=== PATIENT | female | born 1985 | race Two or more races ===

== ENCOUNTER 2018-11-15 21:26 | Emergency (ER) | payer MEDICAID ==
[~2018-11-15] VITALS: Ht 165.1 cm; Wt 83.9 kg
[2018-11-15] MEDS ORDERED: Ketorolac 60mg Inj IM ONE (22:15)
[2018-11-15 22:22] VITALS: BP 102/37
--- NOTE | 2018-11-15 22:25 | NUR ---
ED Nurse Note: Patient walked in to ER c/o left leg pain 10/10. Per patient she was cleaning her kitchen and fell. AAOx4, VSS at this time, patient presented with swollen left knee. will continue to monitor.
[2018-11-15] MEDS ORDERED: IBUPROFEN600 MG ORAL (23:53)
--- NOTE | 2018-11-16 00:21 | NUR ---
ED Nurse Note: Pt cleared by health care Provider for discharge. DC instructions/prescription was given and explained to pt and verbalized understanding of teachings. All medical deviecs such as ID band removed. Pt is AAO x4, ambulatory and left with all personal belongings.
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
--- NOTE | 2018-11-19 15:17 | Emergency Room Report ---
History of Present Illness General Chief Complaint: Multiple Trauma/Fall Source: Patient Present Illness HPI Patient is a 33-year-old female presents after increased right knee pain. Patient had a fall just prior to arrival. She reports having sharp pain to the right knee. She reports having struck the right knee directly on the ground. She reports that increased pain and difficulty with walking after the injury. She denies any other locations of significant pain. She denies past medical history. Allergies: Coded Allergies: Oyster (Verified Allergy, Unknown, 11/15/18) Uncoded Allergies: CAT (Allergy, Unknown, 11/15/18) PINE (Allergy, Unknown, 11/15/18) Patient History Past Medical History: see triage record Last Menstrual Period: now Now: No Reviewed Nursing Documentation: PMH: Agreed; PSxH: Agreed Review of Systems All Other Systems: negative except mentioned in HPI Physical Exam Vital Signs Date Time Temp Pulse Resp B/P (MAP) Pulse Ox O2 Delivery O2 Flow Rate FiO2 11/15/18 22:03 98.1 87 20 102/37 (58) 100 Room Air General Appearance: no apparent distress, alert, GCS 15, obese ENT: hearing grossly normal Respiratory: normal inspection, lungs clear, normal breath sounds, no accessory muscle use Cardiovascular #1: normal inspection, regular rate, rhythm Gastrointestinal: normal inspection, soft Musculoskeletal: swelling - right knee swelling, no definite ligamentous instability. Limited exam due to swelling. Neurologic: normal inspection, alert, oriented x3, responsive, charity fundraiser III-XII nml as tested Psychiatric: normal inspection Skin: other - bruising and swelling near right kneecap Medical Decision Making Diagnostic Impression: Primary Impression: Knee contusion ER Course Patient presented for right knee pain after a fall. Differential diagnosis include was not limited to ligamentous injury, knee dislocation, fracture, meniscal tear among others. X-ray imaging of the right knee 3 views interpreted by me showed normal bony alignment without evident fracture. Patient was given pain medications. She is placed in a knee immobilizer. Patient was advised to follow-up with primary care physician for orthopedic referral. She was given prescription for pain medications. Last Vital Signs Date Time Temp Pulse Resp B/P (MAP) Pulse Ox O2 Delivery O2 Flow Rate FiO2 11/16/18 00:19 98.1 20 102/37 100 Room Air 11/15/18 22:22 87 Status: improved Disposition: HOME, SELF-CARE Condition: Stable Scripts Ibuprofen* (MOTRIN*) 600 Mg Tablet 600 MG ORAL Q8H PRN for For Pain, #30 TAB 0 Refills Prov: Joseph Urena MD 11/15/18 Referrals: NOT CHOSEN IPA/MD,REFERRING Patient Instructions: Knee Sprain, [id number], Knee Immobilizer, [id number] Joseph Urena MD Nov 19, 2018 15:17
== END 2018-11-15 23:35 | disposition home or self-care (01) ==
LOC: EMR 22:30
DX: S80.01XA Contusion of right knee, initial encounter (principal); W19.XXXA Unspecified fall, initial encounter; Y92.9 Unspecified place or not applicable; Z91.048 Other nonmedicinal substance allergy status; E66.9 Obesity, unspecified; Z68.30 Body mass index [BMI] 30.0-30.9, adult
CPT/HCPCS: 29505; 96372; 99283